=== PATIENT | male | born 1980 | race Caucasian/White ===

== ENCOUNTER 2017-10-29 05:50 | Emergency (ER) | payer OTHER ==
[~2017-10-29] VITALS: Ht 180.3 cm; Wt 108.2 kg
[2017-10-29 06:34] LABS: BASOPHIL (%) 0.3 % (0-1); EOSINOPHIL (%) 0.1 % (0-5); HEMATOCRIT 41.4 % (38.0-50.0); HEMOGLOBIN 15.3 G/DL (12.5-16.6); IMMATURE GRANULOCYTE (%) 0.6 % (0.0-0.7); LYMPHOCYTE (%) 17.4 % (15-42); LYMPHOCYTE COUNT 1.8 K/uL (1.0-2.8); MCH 32.7 PG (29.0-34.0); MCV 88.5 FL (86-99); MONOCYTE (%) 11.9 % (3-12); MONOCYTE COUNT 1.2 K/uL (0-0.8); NEUTROPHIL (%) 69.7 % (45-76); NEUTROPHIL COUNT 7.2 K/uL (1.8-6.4); PLATELET COUNT 219 K/uL (156-360); RBC DIS.WIDTH-CV 11.9 % (11.8-14.6); RBC DIS.WIDTH-SD 38.4 % (39-53); RED BLOOD COUNT 4.68 M/uL (4.00-5.50); WHITE BLOOD COUNT 10.3 K/uL (4.1-10.2)
[2017-10-29 06:45] LABS: ALBUMIN 4.2 g/dL (3.2-4.8); CHLORIDE 103 mEq/L (99-109); POTASSIUM 3.8 mEq/L (3.7-5.4); SODIUM 136 mEq/L (136-147)
[2017-10-29 06:48] LABS: GLUCOSE 125 mg/dL (70-99); TOTAL PROTEIN 7.3 g/dL (6.4-8.3)
[2017-10-29 06:50] LABS: TOTAL BILIRUBIN 0.7 mg/dL (0.0-1.0)
[2017-10-29 06:51] LABS: ALKALINE PHOSPHATASE 74 IU/L (3-129)
[2017-10-29 06:53] LABS: AST (GOT) 19 IU/L (2-34); DIRECT BILIRUBIN 0.3 mg/dL (0.0-0.3); UREA NITROGEN (BUN) 10 mg/dL (9-23)
[2017-10-29 06:54] LABS: ALT (GPT) 40 IU/L (3-49)
[2017-10-29 06:55] LABS: GFR ESTIMATE (CALCULATED) > 59 mL/min/ (58.99-99999); LIPASE 30 U/L (1.0-51.0)
[2017-10-29 07:13] LABS: APPEARANCE CLEAR ((CLEAR)); BILIRUBIN NEGATIVE; BLOOD NEGATIVE; COLOR YELLOW ((YELLOW)); GLUCOSE (STRIP) NEGATIVE; KETONES NEGATIVE; LEUKOCYTES NEGATIVE; NITRITE NEGATIVE; PROTEIN (STRIP) 30; UCUL ADDED? NO; UROBILINOGEN 0.2 MG/DL (0.2-1.0)
[2017-10-29] MEDS ORDERED: CIPRO500 MG PO (07:39)
[2017-10-29 08:08] VITALS: BP 127/79
== END 2017-10-29 08:09 | disposition home or self-care (01) ==
LOC: EME 05:50
PROVIDERS: Emergency Medicine
DX: R50.9 Fever, unspecified (principal); R19.7 Diarrhea, unspecified
CPT/HCPCS: 71046; 80048; 80076; 81003; 83605; 83690; 85025; 87177; 87506; 99281; 99284; J7030